=== PATIENT | male | born 1955 | race Caucasian/White ===

== ENCOUNTER 2016-11-06 12:44 | Day surgery (SDC) | payer OTHER ==
[~2016-11-06 12:44] MED LIST: ACETAMINOPHEN 1,000 MG/100 ML VIAL IV SCH
[2016-11-06] MEDS ORDERED: FAMOTIDINE IN SALINE, ISO-OSM 20 MG/50 ML PIGGYBACK IV SCH ×2 (13:24→13:55)
[2016-11-06] MEDS ORDERED: MIDAZOLAM HCL 2 MG/2 ML SYR IV ONE ×2 (13:24→13:55)
[2016-11-06] MEDS ORDERED: LACTATED RINGERS 1,000 ML IV SCH ×3 (13:24→14:00)
[2016-11-06] MEDS ORDERED: LIDOCAINE HCL 1% 20 ML VIAL SUBCUT ONE ×2 (13:24→13:55)
[2016-11-06] MEDS ORDERED: CEFAZOLIN SODIUM 1 GM in NORMAL SALINE MINI-BAG+ 100 ML IV ONE (13:24)
[2016-11-06] MEDS ORDERED: FAMOTIDINE IN SALINE, ISO-OSM 50 ML IV ONE (13:51)
[2016-11-06] MEDS ORDERED: ACETAMINOPHEN 1,000 MG/100 ML VIAL IV ONE (13:51)
[2016-11-06] MEDS ORDERED: CEFAZOLIN SODIUM 1 GM/10 ML VIAL ONE (13:51)
[2016-11-06] MEDS ORDERED: MIDAZOLAM HCL 2 MG/2 ML VIAL ONE (13:51)
[2016-11-06] MEDS ORDERED: MEPERIDINE HCL/PF 50 MG/ML SYR IV PRN (13:55)
[2016-11-06] MEDS ORDERED: ONDANSETRON HCL 4 MG/2 ML VIAL IV PRN (13:55)
[2016-11-06] MEDS ORDERED: HYDROmorphone HCL 1 MG/ML SYR IV PRN (13:55)
[2016-11-06] MEDS ORDERED: ACETAMINOPHEN 1,000 MG/100 ML VIAL IV SCH (13:55)
[2016-11-06] MEDS ORDERED: FENTANYL 100 MCG/2 ML VIAL IV PRN (13:55)
[2016-11-06] MEDS ORDERED: BUPIVACAINE/EPI 0.25% 1 VIAL VIAL ONE (13:58)
[2016-11-06] MEDS ORDERED: KETOROLAC TROMETHAMINE 30 MG/ML VIAL ONE (14:10)
[2016-11-06] MEDS ORDERED: DEXAMETHASONE 4 MG/ML VIAL ONE (14:10)
[2016-11-06 15:10] VITALS: TEMP 97.2
[2016-11-06 15:51] VITALS: BP 152/96; PULSE 59; RESP 16; O2SAT 94
--- NOTE | 2016-11-06 19:02 | OPERATIVE REPORT ---
DATE OF SURGERY: 11/06/16 SURGEON: Johan Israel MD PREOPERATIVE DIAGNOSIS: Recurrent left medial meniscus tear. POSTOPERATIVE DIAGNOSIS: Recurrent left medial meniscus tear. PROCEDURE PERFORMED: Left knee arthroscopy and partial medial meniscectomy as well as chondroplasty of the medial femoral condyle. INDICATIONS FOR PROCEDURE: Patient is a 61-year-old male with a previous history of a left medial meniscectomy. He had done well after that procedure, but a few months ago was hunting when he stepped into a sukhi hole and reinjured his knee. He had recurrent swelling as well as persistent medial joint line pain, after which a MRI revealed findings consistent with a new tear in the medial meniscus. Due to his ongoing symptoms as well as the MRI findings , he was taken to the operating room for his second left knee arthroscopy. SUMMARY: After informed consent was obtained, the patient was taken to the operating room where he was placed in the supine position under general anesthesia. After adequate anesthesia was achieved, the left knee and lower extremity were prepped and draped in the usual sterile fashion, the limb was gently exsanguinated, and a tourniquet was inflated about the proximal thigh to 275 mmHg. A standard anterolateral arthroscopic incision was then performed, and the arthroscope was then guided into the knee and directed into the suprapatellar pouch. The suprapatellar pouch was examined and noted to be free of any loose bodies or other pathology. The articular surface of the patellar was examined and noted to have essentially no chondromalacia. Likewise the femoral trochlea was free of chondromalacia. The arthroscope was then guided into the medial gutter which was noted to be free of any loose bodies or other pathology. The arthroscope was then guided into the anterior portion of the knee and then directed medially at which time the anteromedial incision was established under direct visualization. The anterior cruciate ligament was examined and tested with a probe and noted to be stable and intact. The arthroscope was then guided into the medial compartment, at which time it was noted that there was a fairly extensive tear in the mid to posterior horn of the medial meniscus. The torn portion of the meniscus was resected and then shaved to a stable rim. The patient was also noted to have partial thickness chondro flap tear in the anterior weightbearing portion of the medial femoral condyle. The loose delaminated portions of the cartilage were resected and then it was smoothed using the Novalux radiofrequency wand. The medial compartment was free of any additional pathology. The arthroscope was then guided into the lateral compartment at which time the lateral meniscus was examined, and noted to be stable and intact. Likewise the remainder of the lateral compartment was free of any additional pathology. The arthroscope was then guided into the lateral gutter which is also noted to be free of any loose bodies or other pathology. Hemostasis was then achieved using the radiofrequency wand, and the arthroscope was removed from the knee. The excess fluid was drained, and the knee was infused with 20 mL of 0.25% Marcaine with epinephrine. The incisions were each closed with a single 4-0 nylon suture, and then a lightly compressive sterile dressing was applied. The patient tolerated the procedure well and was taken to the recovery room in stable condition. ESTIMATED BLOOD LOSS: Minimal. FLUIDS: Lactated ringers 850 mL. TOURNIQUET TIME: 24 minutes. MTDD
== END 2016-11-06 16:02 | disposition home or self-care (01) ==
LOC: SDS 12:44
PROVIDERS: ATTEND Orthopaedic Surgery
DX: M23.204 Derangement of unspecified medial meniscus due to old tear or injury, left knee (principal); G47.30 Sleep apnea, unspecified
CPT/HCPCS: J0690; J1885; J2250; J2405